=== PATIENT | female | born 1960 | race Caucasian/White ===

== ENCOUNTER 2016-09-19 16:33 | Inpatient (IN) | payer SELFPAY ==
[~2016-09-19] VITALS: Ht 160 cm; Wt 70.0 kg
[2016-09-19] MEDS ORDERED: ONDANSETRON ODT 4 MG PO ONE (17:00)
[2016-09-19] MEDS ORDERED: SODIUM CHLORIDE FLUSH 10ML SYR IVF ONE ×2 (17:00→19:00)
[2016-09-19 17:30] LABS: BLOOD UREA NITROGEN 26 mg/dL (7-18)
[2016-09-19 17:33] LABS: ASPARTATE AMINO TRANSFERASE 20 U/L (15-37)
[2016-09-19 17:57] LABS: PATH.CAST-FLAG NOT PRESENT; SPERM-FLAG NOT PRESENT; SRC-FLAG NOT PRESENT; XTAL-FLAG NOT PRESENT; YLC-FLAG NOT PRESENT
[2016-09-19] MEDS ORDERED: SODIUM CHLORIDE 0.9% 1,000 ML IV ONE ×2 (18:32→20:17)
[2016-09-19] MEDS ORDERED: HYDROmorphone 1 MG/ML, 1ML ONE (18:52)
[2016-09-19] MEDS ORDERED: ONDANSETRON 2MG/ML, 2ML ONE (18:52)
[2016-09-19] MEDS ORDERED: HYDROmorphone 1 MG/ML, 1ML IVPush PRN ×2 (19:00→20:30)
[2016-09-19] MEDS ORDERED: ONDANSETRON 2MG/ML, 2ML IVPush ONE (19:00)
[2016-09-19] MEDS ORDERED: CEFTRIAXONE PMX 2GM/50ML 50 ML ONE (20:09)
[2016-09-19] MEDS: CEFTRIAXONE PMX 2GM/50ML 50 ML IV ONE ×2 (20:12→21:16)
[2016-09-19] MEDS ORDERED: ONDANSETRON 2MG/ML, 2ML IVPush PRN (20:30)
[2016-09-19] MEDS ORDERED: SODIUM CHLORIDE FLUSH 10ML SYR IVF PRN (20:30)
[2016-09-19] MEDS ORDERED: HYDROmorphone 2 MG/ML, 1ML IV PRN (21:00)
[2016-09-19] MEDS: HEPARIN 5,000 UNITS/ML, 1ML SQ SCH (21:00)
[2016-09-19] MEDS ORDERED: ONDANSETRON 2MG/ML, 2ML IVP PRN (21:00)
[2016-09-19] MEDS ORDERED: HEPARIN 5,000 UNITS/ML, 1ML ONE (21:18)
[2016-09-19 22:47] VITALS: BP 109/73
[2016-09-19] MEDS: SODIUM CHLORIDE 0.9% 1,000 ML IV SCH (22:58)
[2016-09-19] MEDS ORDERED: DIPHENHYDRAMINE 25 MG CAPSULE PO ONE (23:30)
[2016-09-20 02:45] VITALS: BP 114/72
[2016-09-20] MEDS: SODIUM CHLORIDE 0.9% 1,000 ML IV SCH (04:12)
[2016-09-20 05:09] LABS: BLOOD UREA NITROGEN 24 mg/dL (7-18)
[2016-09-20 07:18] VITALS: BP 110/71
[2016-09-20] MEDS: HEPARIN 5,000 UNITS/ML, 1ML SQ SCH (08:48)
[2016-09-20] MEDS ORDERED: SULF1TAB24 PO (11:12)
[2016-09-20] MEDS ORDERED: CEFTRIAXONE PMX 2GM/50ML 50 ML IV SCH (20:00)
== END 2016-09-20 12:30 | disposition home or self-care (01) | DRG 694 ==
LOC: ED 19:14 → EDIP 20:17 → 3NW 21:41
PROVIDERS: ADMIT Internal Medicine; ATTEND Internal Medicine
DX: N13.2 Hydronephrosis with renal and ureteral calculous obstruction (principal); N17.9 Acute kidney failure, unspecified; N23 Unspecified renal colic; N39.0 Urinary tract infection, site not specified; Z82.5 Family history of asthma and other chronic lower respiratory diseases; Z87.442 Personal history of urinary calculi; M54.9 Dorsalgia, unspecified; R73.9 Hyperglycemia, unspecified; Z91.013 Allergy to seafood
CPT/HCPCS: 36415; 74176; 80048; 80053; 81001; 82360; 83605; 84145; 85025; 87040; 87077; 87086; 87186; 93005; 96361; 96374; 96375; J0696; J1170; J2405; J7030; Q0163